=== PATIENT | female | born 1945 | race Caucasian/White ===

== ENCOUNTER 2018-11-13 11:57 | Emergency (ER) | payer MEDICARE, OTHER, SELFPAY ==
[2018-11-13 12:06] VITALS: BP 129/79; PULSE 69; RESP 18; TEMP 36.2; O2SAT 98
--- NOTE | 2018-11-13 13:13 | ED_ITS ---
HPI - Recheck/Abnormal Lab/Rx <Rachell Bello PA-C - Last Filed: 11/13/18 18:57> General Chief Complaint: Recheck/Abnormal Lab/Rx Stated Complaint: abdominal pain needs CT has refferal Time Seen by Provider: 11/13/18 12:14 Source: patient Mode of arrival: ambulatory Limitations: no limitations History of Present Illness HPI narrative: This 72-year-old female who has been traveling on her boat was seen at another local ED yesterday due to abdominal pain and diagnosed with diverticulitis without abscess or perforation. She states she was given IV antibiotics in the ED and did start p.o. antibiotics. She states that she has been drinking fluids, tolerated food last night. She has not had bowel movement today, has had loose stools this week since onset of symptoms about a week ago. She also felt bloated initially with gradual increase in pain. She states she felt feverish 1 day during this time but did not take her temperature due to being boat. She has not had any vomiting. She has not had any chest pain or dyspnea, states she has not had a bowel movement today. She last had diverticulitis about 20 years ago, states she did eat nuts prior to onset of this wonders whether that might be the trigger. She was told to follow up due to being away from home and noting elevated INR at her visit yesterday of 6. She is on warfarin for AFib. She denies any new chest pain, dyspnea or other new complaints on systems review, states she is definitely not feeling worse today in terms of pain, has not had any fever or other new symptoms going on today. Related Data Allergies Allergy/AdvReac Type Severity Reaction Status Date / Time No Known Drug Allergies Allergy Verified 11/13/18 12:06 Review of Systems <Rachell Bello PA-C - Last Filed: 11/13/18 18:57> Review of Systems ROS Unobtainable: All systems reviewed & are unremarkable except as noted in HPI and below PFSH <Rachell Bello PA-C - Last Filed: 11/13/18 18:57> Medical History (Updated 11/13/18 @ 14:00 by Rachell Bello PA-C) History of diverticulitis (Chronic) Chronic a-fib (Chronic) HTN (hypertension) (Chronic) Surgical History (Updated 11/13/18 @ 13:41 by Rachell Bello PA-C) Status post hysterectomy (Resolved) Social History Smoking Status: Never smoker Social History Smoking Status: Never smoker Exam <Rachell Bello PA-C - Last Filed: 11/13/18 18:57> Narrative Exam Narrative: GENERAL APPEARANCE: Patient sitting comfortably, in no distress. HEENT: PERRL, EOMI, no scleral icterus NECK: Supple LUNGS: Clear to auscultation bilaterally. HEART: Rate and rhythm regular, normal S1 and S2, no S3 or S4. ABDOMEN: Soft, nondistended, bowel sounds present x 4 quadrants, no masses palpable. Moderate left and midline lower quadrant tenderness without guarding or rebound. No CVAT EXTREMITIES: No edema, no calf tenderness DERMATOLOGIC: No jaundice or exanthem NEUROLOGIC: Alert and oriented with normal speech and coordination Initial Vital Signs Initial Vital Signs: Vital Signs Temperature 97.1 F L 11/13/18 12:06 Pulse Rate 69 11/13/18 12:06 Respiratory Rate 18 11/13/18 12:06 Blood Pressure 129/79 11/13/18 12:06 Pulse Oximetry 98 11/13/18 12:06 <Facundo Sanchez DO - Last Filed: 11/14/18 08:51> Initial Vital Signs Initial Vital Signs: Vital Signs Temperature 97.1 F L 11/13/18 12:06 Pulse Rate 69 11/13/18 12:06 Respiratory Rate 18 11/13/18 12:06 Blood Pressure 129/79 11/13/18 12:06 Pulse Oximetry 98 11/13/18 12:06 Course <Rachell Bello PA-C - Last Filed: 11/13/18 18:57> Additional Information: ED records yesterday reviewed, no significant lab abn ormalities aside from INR 6.0. CT consistent with diverticulitis without abscess or perforation. Patient appears well today aside from some moderate tenderness on exam. She is tolerating food and fluids as well as her antibiotics. INR down today as expected. She agreed to return to ED if any ac utely worsening symptoms prior to her return home, otherwise already has follow- up scheduled up with primary care office on Thursday. Warfarin instructions given. Orders Ordered: ED Orders 11/13/18 12:50 Complete Blood Count AUTO DIFF Stat Comprehensive Metabolic Panel Stat Lipase Stat Prothrombin Time INR Stat Vital Signs - 8 hr 11/13/18 12:06 Temperature 97.1 F L Pulse Rate 69 Respiratory Rate 18 Blood Pressure 129/79 Pulse Oximetry 98 <Facundo Sanchez DO - Last Filed: 11/14/18 08:51> Orders Ordered: ED Orders 11/13/18 12:50 Complete Blood Count AUTO DIFF Stat Comprehensive Metabolic Panel Stat Lipase Stat Prothrombin Time INR Stat Vital Signs - 8 hr 11/13/18 12:06 Temperature 97.1 F L Pulse Rate 69 Respiratory Rate 18 Blood Pressure 129/79 Pulse Oximetry 98 MDM - Recheck/Abnormal Lab/Rx <Rachell Bello PA-C - Last Filed: 11/13/18 18:57> Lab Data Result diagrams: 11/13/18 12:50 11/13/18 12:50 Lab Results 11/13/18 11/13/18 11/13/18 Range/Units 12:50 12:50 12:50 WBC 4.3 L (4.5-11.0) X10^3/uL RBC 3.90 L (4.0-5.2) X10^6/uL Hgb 12.7 (12.0-16.0) g/dL Hct 37.3 (36-46) % MCV 95.6 (80-100) fL MCH 32.4 (26-34) PG MCHC 33.9 (30-36) % RDW 12.5 (11.6-14.8) % Plt Count 241 (150-400) X10^3/uL Neut % (Auto) 67.6 (50-75) % Lymph % (Auto) 20.8 L (25-40) % Cobb % (Auto) 9.4 (3-14) % Eos % (Auto) 1.5 L (2-4) % Baso % (Auto) 0.7 (0-2) % Neut # (Auto) 2900 (7099-8472) /uL Lymph # (Auto) 900 L (5889-1885) /uL Cobb # (Auto) 400 (0-900) /uL Eos # (Auto) 100 (0-450) /uL Baso # (Auto) 0 (0-100) /uL PT 51.8 H (10.1-12.7) SECONDS INR 4.4 H (0.9-1.3) Sodium 138 (137-145) mmol/L Potassium 4.0 (3.4-5.1) mmol/L Chloride 104 (98-107) mmol/L Carbon Dioxide 27 (22-32) mmol/L BUN 9 (7-17) mg/dL Creatinine 0.50 L (0.52-1.04) mg/dL Estimated GFR > 60.0 (>60) mL/min BUN/Creatinine Ratio 18.0 (6-22) Glucose 109 (80-110) mg/dL Calcium 9.0 (8.4-10.2) mg/dL Total Bilirubin 0.4 (0.2-1.3) mg/dL AST 32 (14-36) IU/L ALT 25 (9-52) IU/L Alkaline Phosphatase 86 (38-126) U/L Total Protein 6.5 (6.3-8.2) g/dL Albumin 3.7 (3.5-5.0) g/dL Globulin 2.8 (1.7-4.1) g/dL Albumin/Globulin Ratio 1.3 (1.0-2.8) Lipase 47 (23-300) U/L <Facundo Sanchez, DO - Last Filed: 11/14/18 08:51> Lab Data Lab Results 11/13/18 11/13/18 11/13/18 Range/Units 12:50 12:50 12:50 WBC 4.3 L (4.5-11.0) X10^3/uL RBC 3.90 L (4.0-5.2) X10^6/uL Hgb 12.7 (12.0-16.0) g/dL Hct 37.3 (36-46) % MCV 95.6 (80-100) fL MCH 32.4 (26-34) PG MCHC 33.9 (30-36) % RDW 12.5 (11.6-14.8) % Plt Count 241 (150-400) X10^3/uL Neut % (Auto) 67.6 (50-75) % Lymph % (Auto) 20.8 L (25-40) % Cobb % (Auto) 9.4 (3-14) % Eos % (Auto) 1.5 L (2-4) % Baso % (Auto) 0.7 (0-2) % Neut # (Auto) 2900 (2131-5237) /uL Lymph # (Auto) 900 L (4227-6747) /uL Cobb # (Auto) 400 (0-900) /uL Eos # (Auto) 100 (0-450) /uL Baso # (Auto) 0 (0-100) /uL PT 51.8 H (10.1-12.7) SECONDS INR 4.4 H (0.9-1.3) Sodium 138 (137-145) mmol/L Potassium 4.0 (3.4-5.1) mmol/L Chloride 104 (98-107) mmol/L Carbon Dioxide 27 (22-32) mmol/L BUN 9 (7-17) mg/dL Creatinine 0.50 L (0.52-1.04) mg/dL Estimated GFR > 60.0 (>60) mL/min BUN/Creatinine Ratio 18.0 (6-22) Glucose 109 (80-110) mg/dL Calcium 9.0 (8.4-10.2) mg/dL Total Bilirubin 0.4 (0.2-1.3) mg/dL AST 32 (14-36) IU/L ALT 25 (9-52) IU/L Alkaline Phosphatase 86 (38-126) U/L Total Protein 6.5 (6.3-8.2) g/dL Albumin 3.7 (3.5-5.0) g/dL Globulin 2.8 (1.7-4.1) g/dL Albumin/Globulin Ratio 1.3 (1.0-2.8) Lipase 47 (23-300) U/L Discharge Plan Departure Patient Disposition: Home Clinical Impression: Diverticulitis, Supratherapeutic INR Discharge Date/Time: 11/13/18 14:14 Interventions: ED Discharge Assessment Last Done: 11/13/18 14:14 Instructions: DI for Diverticulitis Activity Restrictions/Additional Instructions: You appear to be doing well today in terms of your diverticulitis since it can take 2 or 3 days to start to see significant improvement with the antibiotics. There was no new problem found on your lab work and your INR is coming down as expected (It was down from 6 to 4.4 today). Please drink plenty of clear fluids. Please eat small amounts of bland food as you tolerate, i.e. white rice, plain toast, applesauce, bananas, broth, tea until you are feeling better, then you can gradually resume your normal diet. Continue your antibiotic. Do not take your warfarin/Coumadin today. Take 1/2 tab (2.5 mg) tomorrow night, and follow up with your PCP on Thursday as you have planned. As we talked about, you should return if you have any acutely worsening symptoms while you are traveling in the interim Referrals: Brad, [Other] <Facundo Sanchez DO - Last Filed: 11/14/18 08:51> [facility] ED Attending Lalo Attestation: I was immediately available in the department for consultation. Documentation has been reviewed. I agree with assessment and plan.
[2018-11-13 13:26] LABS: Add Manual Diff / Slide Review NO; Basophils Absolute Auto 0 /uL (0-100); Basophils Percent Auto 0.7 % (0-2); Eosinophils Absolute Auto 100 /uL (0-450); Eosinophils Percent Auto 1.5 % (2-4); Hematocrit 37.3 % (36-46); Hemoglobin 12.7 g/dL (12.0-16.0); Lymphocytes Absolute Auto 900 /uL (1100-4500); Lymphocytes Percent Auto 20.8 % (25-40); Mean Corpuscular HGB Conc 33.9 % (30-36); Mean Corpuscular Hemoglobin 32.4 PG (26-34); Mean Corpuscular Volume 95.6 fL (80-100); Monocytes Absolute Auto 400 /uL (0-900); Monocytes Percent Auto 9.4 % (3-14); Neutrophils Absolute Auto 2900 /uL (1500-7000); Neutrophils Percent Auto 67.6 % (50-75); Platelet Count 241 X10^3/uL (150-400); Red Cell Distribution Width 12.5 % (11.6-14.8); White Blood Cell Count 4.3 X10^3/uL (4.5-11.0)
[2018-11-13 13:27] LABS: INR 4.4 (0.9-1.3); Prothrombin Time 51.8 SECONDS (10.1-12.7)
[2018-11-13 13:31] LABS: Alanine Aminotransferase 25 IU/L (9-52); Albumin 3.7 g/dL (3.5-5.0); Albumin Globulin Ratio 1.3 (1.0-2.8); Alkaline Phosphatase 86 U/L (38-126); Aspartate Aminotransferase 32 IU/L (14-36); Bilirubin Total 0.4 mg/dL (0.2-1.3); Blood Urea Nitrogen 9 mg/dL (7-17); Carbon Dioxide 27 mmol/L (22-32); Chloride 104 mmol/L (98-107); Estimated Glomerular Filt Rate > 60.0 mL/min (>60); Globulin 2.8 g/dL (1.7-4.1); Glucose 109 mg/dL (80-110); HEMOLYSIS < 15 (0-50); Lipase 47 U/L (23-300); Sodium 138 mmol/L (137-145); Total Protein 6.5 g/dL (6.3-8.2)
== END 2018-11-13 14:14 | disposition home or self-care (01) ==
PROVIDERS: Emergency Provider Internal Medicine
DX: K57.92 Diverticulitis of intestine, part unspecified, without perforation or abscess without bleeding (principal); R79.1 Abnormal coagulation profile
CPT/HCPCS: 36415; 80053; 83690; 85025; 85610; 99282; 99283